=== PATIENT | male | born 1955 | race Hispanic/Latino ===

== ENCOUNTER 2017-02-16 13:23 | Inpatient (IN) | payer BC, OTHER ==
[2017-02-16 13:43] VITALS: BMI 25.7
--- NOTE | 2017-02-16 13:58 | CT ---
PROCEDURE: CT HEAD WITHOUT CONTRAST. HISTORY: s/p fall - r/o ICH and fx COMPARISON: None available. TECHNIQUE: Axial computed tomography images were obtained through the head/brain without intravenous contrast. Radiation dose: Total exam DLP = 823 mGy-cm. This CT exam was performed using one or more of the following dose reduction techniques: Automated exposure control, adjustment of the mA and/or kV according to patient size, and/or use of iterative reconstruction technique. FINDINGS: HEMORRHAGE: No intracranial hemorrhage. BRAIN: No mass effect or edema. No chronic microvascular ischemic changes. Mild atrophy VENTRICLES: Unremarkable. No hydrocephalus. CALVARIUM: There is soft tissue swelling and hemorrhage in the right parietal scalp. There is no associated fracture PARANASAL SINUSES: Unremarkable as visualized. No significant inflammatory changes. MASTOID AIR CELLS: Unremarkable as visualized. No inflammatory changes. OTHER FINDINGS: None. IMPRESSION: Normal CT of the Head.
[2017-02-16 13:59] LABS: ADD MANUAL DIFF? NO
[2017-02-16 14:03] LABS: BASO # 0.01 K/mm3 (0.0-2.0); BASO % 0.2 % (0.0-3.0); EOS % 0.2 % (1.5-5.0); GRAN # 4.95 (1.4-6.5); GRAN % 75.5 % (50.0-68.0); HEMATOCRIT 41.5 % (42.0-52.0); LYMPH # 1.2 (1.2-3.4); LYMPH % 18.6 % (22.0-35.0); MEAN CELL VOLUME 91.2 fL (80.0-105.0); MEAN CORPUSCULAR HEMOGLOBIN 31.6 pg (25.0-35.0); MEAN CORPUSCULAR HGB CONC 34.7 g/dl (31.0-37.0); MEAN PLATELET VOLUME 10.9 fl (7.0-11.0); MONO # 0.4 (0.1-0.6); MONO % 5.5 % (1.0-6.0); PLATELET COUNT 164 10^3/uL (120.0-450.0); RED CELL DISTRIBUTION WIDTH 12.6 % (11.5-14.5); WHITE BLOOD COUNT 6.6 10^3/ul (4.5-11.0)
--- NOTE | 2017-02-16 14:08 | RAD ---
HISTORY: syncope COMPARISON: No prior. FINDINGS: LUNGS: No active pulmonary disease. PLEURA: No significant pleural effusion identified, no pneumothorax apparent. CARDIOVASCULAR: Normal. OSSEOUS STRUCTURES: No significant abnormalities. VISUALIZED UPPER ABDOMEN: Normal. OTHER FINDINGS: None. IMPRESSION: No active disease.
[2017-02-16 14:15] LABS: ALB/GLOB RATIO 1.2 (1.1-1.8); ALKALINE PHOSPHATASE 67 U/L (38-133); ALT/SGPT 48 U/L (7-56); AST/SGOT 35 U/L (15-59); BILIRUBIN,TOTAL 0.8 mg/dL (0.2-1.3); BLOOD UREA NITROGEN 20 mg/dL (7-21); CALCIUM 9.4 mg/dL (8.4-10.5); CARBON DIOXIDE 25 mmol/L (21-33); CHLORIDE 98 mmol/L (98-107); GFR AFRICAN-AMERICAN > 60; GLUCOSE,RANDOM 150 mg/dL (70-110); MAGNESIUM 1.9 mg/dL (1.7-2.2); POTASSIUM 3.8 mmol/L (3.6-5.0); SODIUM 136 mmol/L (132-148); TOTAL PROTEIN 7.6 g/dL (5.8-8.3)
[2017-02-16 14:35] LABS: TROPONIN I < 0.01 ng/mL
--- NOTE | 2017-02-16 14:48 | ED PDOC ---
Arrival/HPI - General Chief Complaint: Altered Mental Status Time Seen by Provider: 02/16/17 13:35 Historian: Patient, EMS - History of Present Illness Narrative History of Present Illness (Text): 02/16/17 14:58 A 61 year old male presents to emergency department by EMS because of syncopal episode. Patient was walking to work and became dizzy. The next thing he remembered was being in the emergency department. Patient denies shortness of breath, chest pain, recent fevers, cough or any other complaints at this time. Patient reports eating today and no recent illness. Patient notes this has never happened in the past. Time/Duration: Prior to Arrival Symptom Onset: Sudden Symptom Course: Improving Activities at Onset: Rest Modifying Factors (Text): none Context: Walking Associated Symptoms (Text): none Past Medical History - Provider Review Nursing Documentation Reviewed: Yes - Cardiac Hx Cardiac Disorders: Yes Hx Hypertension: Yes - Pulmonary Hx Respiratory Disorders: No - Neurological Hx Neurological Disorder: No - HEENT Hx HEENT Disorder: No - Renal Hx Renal Disorder: No - Endocrine/Metabolic Hx Endocrine Disorders: No - Hematological/Oncological Hx Blood Disorders: No - Integumentary Hx Dermatological Disorder: No - Musculoskeletal/Rheumatological Hx Musculoskeletal Disorders: No - Gastrointestinal Hx Gastrointestinal Disorders: No - Genitourinary/Gynecological Hx Genitourinary Disorders: No - Psychiatric Hx Psychophysiologic Disorder: No Hx Substance Use: No Family/Social History - Physician Review Nursing Documentation Reviewed: Yes Family/Social History: No Known Family HX Smoking Status: Never Smoked Hx Alcohol Use: No Hx Substance Use: No Allergies/Home Meds Allergies/Adverse Reactions: Allergies No Known Allergies Allergy (Verified 02/16/17 13:27) Home Medications: Home Meds Medication Instructions Recorded Confirmed RX: Unobtainable 02/16/17 02/16/17 Review of Systems - Physician Review All systems were reviewed & negative as marked: Yes - Review of Systems Constitutional: absent: Fevers Respiratory: absent: SOB, Cough Cardiovascular: absent: Chest Pain Neurological: Dizziness Physical Exam Vital Signs Reviewed: Yes Vital Signs Temp Pulse Resp BP Pulse Ox 02/16/17 16:27 98.2 F 85 18 127/71 98 - Systems Exam Head: Present: Abrasion (and hematoma to R parietal area). No: Other (no active bleeding) Pupils: Present: PERRL Extroacular Muscles: Present: EOMI Conjunctiva: Present: Normal Mouth: Present: Moist Mucous Membranes Neck: Present: Normal Range of Motion Respiratory/Chest: Present: Clear to Auscultation, Good Air Exchange. No: Respiratory Distress, Accessory Muscle Use Cardiovascular: Present: Regular Rate and Rhythm, Normal S1, S2. No: Murmurs Abdomen: Present: Normal Bowel Sounds. No: Tenderness, Distention, Peritoneal Signs Upper Extremity: Present: Normal Inspection. No: Cyanosis, Edema Lower Extremity: Present: Normal Inspection. No: Edema Neurological: Present: GCS=15, CN II-XII Intact, Speech Normal Skin: Present: Warm, Dry, Normal Color. No: Rashes Psychiatric: Present: Alert, Oriented x 3, Normal Insight, Normal Concentration Medical Decision Making ED Course and Treatment: 02/16/17 14:45 Impression: A 61 year old male presents after syncopal episode. Differential Diagnosis included but are not limited to: syncope Plan: -- EKG -- CT head -- chest xray -- labs -- Urinalysis -- Reassess and disposition Progress Notes: EKG: Ordered, reviewed, and independently interpreted the EKG. Rate : 89 BPM Rhythm : NSR Interpretation : Normal intervals, normal axis Comparison : No previous EKG for comparison. CT head: Creator : Antonio Davis MD IMPRESSION: Normal CT of the Head. chest xray: Creator : Za Amos IMPRESSION: No active disease. - Lab Interpretations Lab Results: 02/16/17 13:50 02/16/17 13:50 Lab Results 02/16/17 13:50: Sodium 136, Potassium 3.8, Chloride 98, Carbon Dioxide 25, Anion Gap 17, BUN 20, Creatinine 0.8, Est GFR ( Amer) > 60, Est GFR (Non- Af Amer) > 60, Random Glucose 150 H, Calcium 9.4, Magnesium 1.9, Total Bilirubin 0.8, AST 35, ALT 48, Alkaline Phosphatase 67, Lactate Dehydrogenase 421, Total Creatine Kinase 145, Troponin I < 0.01, Total Protein 7.6, Albumin 4.2, Globulin 3.4, Albumin/Globulin Ratio 1.2 02/16/17 13:50: WBC 6.6, RBC 4.55, Hgb 14.4, Hct 41.5 L, MCV 91.2, MCH 31.6, MCHC 34.7, RDW 12.6, Plt Count 164, MPV 10.9, Gran % 75.5 H, Lymph % (Auto) 18.6 L, [place] % (Auto) 5.5, Eos % (Auto) 0.2 L, Baso % (Auto) 0.2, Gran # 4.95, Lymph # 1.2, [place] # 0.4, Eos # 0.0, Baso # 0.01 I have reviewed the lab results: Yes - RAD Interpretation Radiology Orders: 02/16/17 13:45 HEAD W/O CONTRAST [CT] Stat CHEST PORTABLE [RAD] Stat - EKG Interpretation Interpreted by ED Physician: Yes Type: 12 lead EKG - Scribe Statement The provider has reviewed the documentation as recorded by the Scribmeghan Remy All medical record entries made by the Evelynibmeghan were at my direction and personally dictated by me. I have reviewed the chart and agree that the record accurately reflects my personal performance of the history, physical exam, medical decision making, and the department course for this patient. I have also personally directed, reviewed, and agree with the discharge instructions and disposition. Disposition/Present on Arrival - Present on Arrival Any Indicators Present on Arrival: No History of DVT/PE: No History of Uncontrolled Diabetes: No Urinary Catheter: No History of Decub. Ulcer: No History Surgical Site Infection Following: None - Disposition Have Diagnosis and Disposition been Completed?: Yes Diagnosis: Syncope Disposition: HOSPITALIZED Disposition Time: 15:00 Patient Plan: Admission, Telemetry Condition: STABLE
--- NOTE | 2017-02-16 15:10 | CARD ---
APPROVED REPORT EKG Measurement Heart [id number] <Conclusion> Normal sinus rhythm Normal ECG
[2017-02-16 15:37] LABS: URINE BILIRUBIN NEGATIVE (NEGATIVE); URINE BLOOD NEGATIVE (NEGATIVE); URINE GLUCOSE (UA) NEGATIVE (NEGATIVE); URINE KETONE NEGATIVE (NEGATIVE); URINE LEUKOCYTE ESTERASE NEGATIVE Leu/uL (NEGATIVE); URINE PROTEIN 30 mg/dL (<30 mg/dL); URINE UROBILINOGEN 0.2 E.U./dL (<1 E.U./dL)
[2017-02-16 15:39] LABS: URINE APPEARANCE CLEAR (CLEAR); URINE COLOR YELLOW (YELLOW)
[2017-02-16 15:45] LABS: URINE RBC NEGATIVE /hpf (0-2); URINE WBC NEGATIVE /hpf (0-6)
--- NOTE | 2017-02-16 19:28 | CON ---
DATE: 02/16/2017 HISTORY OF PRESENT ILLNESS: This is a 61-year-old male with past medical history of coronary artery disease status post stent several years ago. The patient was recently put on Eliquis because of atri al fibrillation and came to hospital. The patient was walking to work, became dizzy and fell and hit his head and sustained a hematoma on the back of the right side of the head with raccoon eyes. I wa s called to evaluate the patient. The and daughter at bedside. REVIEW OF SYSTEMS: A 10-point review of system was negative, except slight hematoma in the parietal area and raccoon eyes. PHYSICAL EXAMINATION: HEENT: Normocephalic, head trauma with hematoma on the parietal area and raccoon eyes. Pupils react alex. Conjunctivae are normal. NEUROLOGIC: Alert, awake, oriented x 3. No aphasia. Cranial nerves II-XII were tested. Pupils osvaldo ctive. EOM intact. Visual canas full. No facial asymmetry. Tongue midline. Motor: Moves all of the extremities equally and deep tendon reflexes 1+. Both plantars are downgoing. Left foot drop w as noticed. Deep tendon reflexes 1+ . Plantars are downgoing. Sensory appears intact. Cerebe llar and gait deferred. IMPRESSION AND PLAN: Head trauma, syncope with a passing out spell and less likely seizures. We charlotte l do the MRI of the head and MRA of the brain and repeat the CAT scan tomorrow morning and EEG. I al so spoke to the nurse to call the chief operations officer regarding Eliquis whether to stop or continue. Martin Mata MD cc: [id number] TT: 02/16/2017 19:27:29 Confirmation # [id number] Dictation # [id number] mn
[2017-02-17 04:35] LABS: INR 1.06 (0.93-1.08); PARTIAL THROMBOPLASTIN TIME 27.7 Seconds (23.7-30.8)
--- NOTE | 2017-02-17 05:43 | CP.PCM.CON ---
<Adelso Dugan - Last Filed: 02/17/17 05:39> History of Present Illness - History of Present Illness History of Present Illness: ICU Consult Note for Dr. Driver 61 y/o M with PMH of CAD with cardiac stent placement and paroxysmal a-fib on eliquis presents to the hospital after a syncopal episode. Pt states he was walking to work and began feeling dizzy. The next thing he remembers in walking up in the hospital. Pt was found to have a right-sided skull hematoma. Pt was evaluated by Neurology and the only deficit noted at this time was a left foot drop. Tonight, pt was getting up to use the restroom when he noticed progressive left leg weakness. At this time, a repeat CT of the head was done which showed PMH: CAD, A-fib Surgical Hx: Cardiac stent placement Social Hx: Former smoker. Social alcohol use. Denies illicit drug use. Allergies: NKDA Medication: Eliquis Review of Systems - Constitutional Constitutional: absent: Chills, Fever - EENT Eyes: absent: Blurred Vision, Change in Vision Nose/Mouth/Throat: absent: Nasal Congestion, Nasal Discharge - Cardiovascular Cardiovascular: Irregular Heart Rhythm. absent: Chest Pain - Respiratory Respiratory: absent: Cough, Dyspnea - Gastrointestinal Gastrointestinal: absent: Diarrhea, Vomiting - Genitourinary Genitourinary: absent: Dysuria - Integumentary Integumentary: absent: New Lesions, Sores - Neurological Neurological: Weakness. absent: Numbness, Tingling - Hematologic/Lymphatic Hematologic: absent: Easy Bleeding, Easy Bruising Past Patient History - Past Social History Smoking Status: Never Smoked - CARDIAC Hx Cardiac Disorders: Yes Hx Hypertension: Yes - PULMONARY Hx Respiratory Disorders: No - NEUROLOGICAL Hx Neurological Disorder: No - HEENT Hx HEENT Problems: No - RENAL Hx Chronic Kidney Disease: No - ENDOCRINE/METABOLIC Hx Endocrine Disorders: No - HEMATOLOGICAL/ONCOLOGICAL Hx Blood Disorders: No - INTEGUMENTARY Hx Dermatological Problems: No - MUSCULOSKELETAL/RHEUMATOLOGICAL Hx Falls: No - GASTROINTESTINAL Hx Gastrointestinal Disorders: No - GENITOURINARY/GYNECOLOGICAL Hx Genitourinary Disorders: No - PSYCHIATRIC Hx Substance Use: No - SURGICAL HISTORY Hx Cardiac Catheterization: Yes Hx Coronary Stent: Yes (3 stents) Meds Allergies/Adverse Reactions: Allergies Allergy/AdvReac Type Severity Reaction Status Date / Time No Known Allergies Allergy Verified 02/16/17 13:27 Physical Exam - Constitutional Appears: Non-toxic, No Acute Distress - Head Exam Head Exam: NORMOCEPHALIC Additional comments: Bandaged right sided skull hematoma. Dressing clean, dry, and intact. Bruising noted around right eye. - Eye Exam Eye Exam: EOMI, Normal appearance, PERRL - ENT Exam ENT Exam: Mucous Membranes Moist, Normal Exam - Neck Exam Neck exam: Positive for: Normal Inspection. Negative for: Lymphadenopathy - Respiratory Exam Respiratory Exam: Clear to Auscultation Bilateral, NORMAL BREATHING PATTERN. absent: Rales, Rhonchi - Cardiovascular Exam Cardiovascular Exam: RRR, +S1, +S2 - GI/Abdominal Exam GI & Abdominal Exam: Normal Bowel Sounds, Soft. absent: Tenderness - Extremities Exam Extremities exam: Positive for: normal inspection. Negative for: calf tenderness, pedal edema - Neurological Exam Neurological exam: Alert, Oriented x3 Additional comments: Motor and sensation intact in upper and lower extremities b/l. Left leg muscle strength 3/5 throughout Right leg muscle strength 5/5 throughout - Psychiatric Exam Psychiatric exam: Normal Affect, Normal Mood - Skin Skin Exam: Intact, Normal Color, Warm Results - Vital Signs Recent Vital Signs: Last Vital Signs Temp 99.1 F 02/17/17 05:00 Pulse 63 02/17/17 05:00 Resp 16 02/17/17 05:00 BP 129/63 02/17/17 05:00 Pulse Ox 93 L 02/17/17 05:00 - Labs Result Diagrams: 02/16/17 13:50 02/16/17 13:50 Labs: Laboratory Results - last 24 hr 02/16/17 02/16/17 02/17/17 15:15 21:24 04:08 PT 11.4 INR 1.06 APTT 27.7 Urine Color Yellow Urine Appearance Clear Urine pH 7.0 Ur Specific [place] 1.020 Urine Protein 30 H Urine Glucose (UA) Negative Urine Ketones Negative Urine Blood Negative Urine Nitrate Negative Urine Bilirubin Negative Urine Urobilinogen 0.2 Ur Leukocyte Esterase Negative Urine RBC Negative Urine WBC Negative Urine Opiates Screen Negative Urine Methadone Screen Negative Ur Barbiturates Screen Negative Ur Phencyclidine Scrn Negative Ur Amphetamines Screen Negative U Benzodiazepines Scrn Negative U Oth Cocaine Metabols Negative U Cannabinoids Screen Negative Assessment & Plan - Assessment and Plan (Free Text) Plan: 61 y/o M with PMH of CAD with stent placement and A-fib presents with worsening right parietal extracranial hemorrhage and progression of subcentimeter hemorrhage to 1.5 cm hemorrhage at the right vertex. Brain MRI is also demonstrates probable acute minimal hemorrhagic infarction. Pt is oriented x 3 at this time, but does appear forgetful when asked about prior medical hx, which seems to be a new development. Pt will be given 2 units of FFP. Pt will be transferred to the ICU for closer monitoring in the setting of worsening left lower extremity weakness and change in mental status. Neuro: Imaging results as above Neurochecks q2h 2 units FFP given to assist in bleed EEG ordered PT/OT given Seizure precautions Swallow eval Neurology following, Dr. Mata Cardio: Hemodynamically stable Maintain MAP >65 Monitor closely, maintain normotensive pressures Pulm: Maintain O2 saturation >90% GI: NPO Protonix Nephro: Replace electrolytes as needed Maintain euvolemia Heme/ID: 2 units FFP given Maintain normothermia PPX: SCDs Seen, reviewed, and discussed with attending Ritchie, PGY-1 <Virgilio Driver P - Last Filed: 02/18/17 19:43> Results - Vital Signs Recent Vital Signs: Last Vital Signs Temp 98 F 02/17/17 11:33 Pulse 72 02/17/17 11:33 Resp 20 02/17/17 11:33 BP 120/64 02/17/17 11:33 Pulse Ox 98 02/17/17 11:33 - Labs Result Diagrams: 02/17/17 10:00 02/17/17 10:00 Attending/Attestation - Attestation I have personally seen and examined this patient.: Yes I have fully participated in the care of the patient.: Yes I have reviewed all pertinent clinical information: Yes
--- NOTE | 2017-02-17 09:23 | HP ---
The patient is a 61-year-old male with a history of coronary artery disease status post PTCA in 2004, who had been doing quite well and suffered a syncopal episode on the way to the [employer] [facility] where he works. The patient does not remember anything of the episode. He does admit to feeli ng slightly weak and then recalls waking up in the [facility] Emergency Room. The patien t is still kind of groggy. He did vomit once in the Emergency Room. MEDICATIONS: Include Toprol-XL 50 mg, aspirin 325 mg, Lipitor 20 mg. Because of a burst of atrial f ibrillation in the recent past, supposedly is reported his Toprol had been increased to 100 mg about 2 weeks ago and he had also been started on Eliquis. SOCIAL HISTORY: The patient is . He has a history of cigarettes; however, not smoked for the past 20 years. He drinks alcohol only socially. He drinks about 3 cups of coffee a day. REVIEW OF SYSTEMS: Otherwise, negative as the patient is rather groggy and consider a poor historian . PHYSICAL EXAMINATION: HEENT: There was a large hematoma over the right parietal area. There seem to be a growing ecchymos is around the right orbit. NECK: Supple, but tender. RESPIRATORY: His breath sounds are clear anteriorly. HEART: Regular. ABDOMEN: Soft and nontender. EXTREMITIES: Free of cyanosis, clubbing or edema. VITAL SIGNS: His blood pressure is 127/71, heart rate is 85, temperature is 98.2 degrees Fahrenheit. LABORATORY STUDIES: Initial CAT scan of the head was normal. Chest x-ray shows no acute disease. E KG shows regular sinus rhythm. His white blood cell count is 6.6, hemoglobin and hematocrit 14.4 and 41.5 respectively, platelet count is 164. Serum chemistries are unremarkable with a sodium of 136, potassium 3.8, BUN 20, creatinine 0.8. Nonfasting glucose is 150. His liver enzymes, CK and troponi ns are negative. Dr. Mata, the neurologist, was called to evaluate the patient. Repeat CAT scan a nd MRI are ordered and The case was discussed with the patient's at bedside as well as the ' s friend who was giving her oral support. We will continue to follow the patient closely. Follow up on the repeat CAT scan and MRI. Antonio Murguia MD cc: [phone] TT: 02/17/2017 09:23:02 mn
--- NOTE | 2017-02-17 09:45 | US ---
PROCEDURE: Bilateral carotid artery duplex ultrasound HISTORY: Carotid stenosis syncope PHYSICIAN(S): Donn Vazquez MD. TECHNIQUE: Duplex sonography and color-flow Doppler were used to evaluate the carotid bifurcations and limited segments of the vertebral arteries bilaterally. FINDINGS: There is mild smooth heterogeneous plaque noted at the carotid bifurcations bilaterally. The peak systolic velocity in the proximal right internal carotid artery is 96 cm/sec. This corresponds to a 20 to 39% proximal right ICA stenosis. Normal systolic velocities are noted in the proximal right external carotid artery. There is antegrade flow in the right vertebral artery. The peak systolic velocity in the proximal left internal carotid artery is 90 cm/sec. This corresponds to a 20 to 39% proximal left ICA stenosis. Normal systolic velocities are noted in the proximal left external carotid artery. There is antegrade flow in the left vertebral artery. IMPRESSION: 1. Bilateral 20-39% proximal ICA stenoses. 2. Antegrade flow in both vertebral arteries.
--- NOTE | 2017-02-17 09:58 | MRI ---
PROCEDURE: MRI BRAIN WITHOUT CONTRAST HISTORY: syncope/hematoma COMPARISON: CT of the head 02/16/2017 and 02/17/2017 TECHNIQUE: Multiplanar, multisequence MR images of the brain were obtained without intravenous contrast enhancement. FINDINGS: HEMORRHAGE: A focus of hemorrhage is seen in the right posterior frontal lobe near the midline of the precentral gyrus. This appears larger on MRI than on CT. This may be due to increased sensitivity to hemorrhage. This lesion measures 8 x 13 mm on image 23. Smaller foci of hemorrhage are seen in the right parietal white matter images 18 through twenty-one. There is also diffusion abnormality associated with these areas of hemorrhage. This suggests a hemorrhagic infarct. There is a scalp hematoma over the right parietal region consistent with the patient's recent fall. Although the intracranial hemorrhages could be associated with trauma from a fall it is less likely. Intraparenchymal hemorrhage from trauma is usually seen in more high velocity traumatic head injury. DWI: As above BRAIN PARENCHYMA: No mass effect or edema. In addition to the above findings there are mild microvascular changes in the periventricular white matter. There is mild atrophy. VENTRICLES: Unremarkable. No hydrocephalus. CRANIUM: Unremarkable. ORBITS: Grossly unremarkable. PARANASAL SINUSES/MASTOIDS: Clear VASCULAR SYSTEM: Skull base flow voids intact. OTHER FINDINGS: The report concurs with the preliminary [facility] report IMPRESSION: Areas of hemorrhage and diffusion abnormality in the right posterior frontal and parietal lobes most consistent with acute hemorrhagic infarcts in a watershed distribution. See comments
--- NOTE | 2017-02-17 10:01 | MRI ---
PROCEDURE: Magnetic Resonance Angiography Brain HISTORY: SYNCOPE COMPARISON: MRI of the brain and head CT from the same day TECHNIQUE: 3D time of flight MR angiography of the intracranial arteries was performed. Rotating maximum intensity projection images were generated. FINDINGS: INTERNAL CEREBRAL ARTERIES: Unremarkable. The skull base, petrous, cavernous and supraclinoid segments are bilaterally widely patient. ANTERIOR CEREBRAL ARTERIES: Unremarkable. A1 and A2 segments are widely patent. Smaller distal branches unremarkable, as visualized. MIDDLE CEREBRAL ARTERIES: Unremarkable. M1 and M2 segments are widely patent. Perisylvian branches grossly symmetric. POSTERIOR CIRCULATION: Basilar Artery: Unremarkable. Distal Vertebral Arteries: Unremarkable. Posterior Cerebral Arteries: Unremarkable. Posterior Inferior Cerebellar Arteries: Unremarkable. ANEURYSM/ VASCULAR MALFORMATIONS: None. OTHER FINDINGS: The report concurs with the preliminary [facility] report IMPRESSION: Unremarkable MR angiography of the brain.
[2017-02-17 10:16] LABS: ADD MANUAL DIFF? NO
[2017-02-17 10:19] LABS: BASO # 0.01 K/mm3 (0.0-2.0); BASO % 0.1 % (0.0-3.0); EOS % 0.1 % (1.5-5.0); GRAN # 5.24 (1.4-6.5); GRAN % 74.4 % (50.0-68.0); HEMATOCRIT 43.2 % (42.0-52.0); LYMPH # 1.1 (1.2-3.4); LYMPH % 16.1 % (22.0-35.0); MEAN CELL VOLUME 91.1 fL (80.0-105.0); MEAN CORPUSCULAR HEMOGLOBIN 31.4 pg (25.0-35.0); MEAN CORPUSCULAR HGB CONC 34.5 g/dl (31.0-37.0); MEAN PLATELET VOLUME 10.2 fl (7.0-11.0); MONO # 0.7 (0.1-0.6); MONO % 9.3 % (1.0-6.0); PLATELET COUNT 145 10^3/uL (120.0-450.0); RED CELL DISTRIBUTION WIDTH 12.4 % (11.5-14.5); WHITE BLOOD COUNT 7.1 10^3/ul (4.5-11.0)
--- NOTE | 2017-02-17 10:21 | CT ---
PROCEDURE: CT HEAD WITHOUT CONTRAST. 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 Radiation dose: Total exam DLP = 779 mGy-cm. This CT exam was performed using one or more of the following dose reduction techniques: Automated exposure control, adjustment of the mA and/or kV according to patient size, and/or use of iterative reconstruction technique. FINDINGS: HEMORRHAGE: The small focus of hemorrhage in the right posterior frontal lobe seen previously has increased in size and now measures 15 mm in diameter. New areas of hemorrhage are seen in the right parietal white matter. These findings were also demonstrated on yesterday's MRI. The MRI a showed areas of diffusion restriction making the findings most consistent with hemorrhagic infarcts. Posttraumatic hemorrhage is also possible. There is a large right parietal scalp hematoma from recent fall. Continued followup is recommended BRAIN: No mass effect or edema. No atrophy or chronic microvascular ischemic changes. VENTRICLES: Unremarkable. No hydrocephalus. CALVARIUM: Unremarkable. PARANASAL SINUSES: Unremarkable as visualized. No significant inflammatory changes. MASTOID AIR CELLS: Unremarkable as visualized. No inflammatory changes. OTHER FINDINGS: None. IMPRESSION: Increased size of hemorrhage in the right posterior frontal lobe and new areas of hemorrhage in the right parietal white matter. The findings may represent hemorrhagic infarcts or posttraumatic hemorrhage
[2017-02-17 10:27] LABS: ALB/GLOB RATIO 1.2 (1.1-1.8); ALKALINE PHOSPHATASE 67 U/L (38-133); ALT/SGPT 51 U/L (7-56); AST/SGOT 29 U/L (15-59); BILIRUBIN,TOTAL 1.4 mg/dL (0.2-1.3); BLOOD UREA NITROGEN 12 mg/dL (7-21); CALCIUM 9.4 mg/dL (8.4-10.5); CARBON DIOXIDE 30 mmol/L (21-33); CHLORIDE 97 mmol/L (98-107); GFR AFRICAN-AMERICAN > 60; GLUCOSE,RANDOM 112 mg/dL (70-110); POTASSIUM 3.7 mmol/L (3.6-5.0); SODIUM 137 mmol/L (132-148); TOTAL PROTEIN 7.9 g/dL (5.8-8.3)
[2017-02-17 10:40] VITALS: PULSE 72
--- NOTE | 2017-02-17 10:49 | CON ---
DATE: 02/17/2017 INDICATIONS: Syncope, head trauma, intracerebral bleed, on Eliquis. HISTORY OF PRESENT ILLNESS: This is a 61-year-old man known to our practice with a history of remote coronary artery disease and coronary intervention, paroxysmal atrial fibrillation, on Eliquis, who became dizzy and fell on the street while walking to the library yesterday. He suffered head trauma, was brought to the Emergency Room where he was found to have a parietal hematoma. A CAT scan initially was negative. During the night, he developed left leg symptoms. Repeat CAT scan apparently showed a small intercerebral bleed, although the formal report is not in the system. Today, he is resting in the ICU. He is awake and alert. He has weakness of his left leg and foot. He has been given fresh frozen plasma. Eliquis has been discontinued. He is in sinus rhythm. He recalls feeling dizzy, but does not recall any other events prior to arriving in the hospital. There was no chest pain, shortness of breath, orthopnea, PND, edema, claudication, prior syncope, fever, chills, cough, sputum production, hemoptysis, abdominal pain, nausea, diarrhea, constipation or melena. There was an episode of vomiting initially. PAST MEDICAL HISTORY: Coronary artery disease, remote coronary stent and paroxysmal atrial fibrillation. There is no history of rheumatic fever, myocardial infarction, congestive heart failure, stroke, TIA, diabetes or gout. MEDICATIONS: At the time of his admission, Eliquis. ALLERGIES: There are no medication allergies. SOCIAL HISTORY: He is a former smoker. He does not drink alcohol significantly. He lives at home. He is ambulatory. FAMILY HISTORY: Noncontributory. REVIEW OF SYSTEMS: A 10-point review of systems is otherwise unremarkable except as noted above. PHYSICAL EXAMINATION: GENERAL: He is a well-developed male sitting on his bed in the ICU in no acute distress. VITAL SIGNS: Unremarkable. He is in sinus rhythm at 75 beats per minute. He is afebrile. Blood pressure 154/85, respirations 18-26, O2 sat 95%-97% on room air. HEENT: Reveals no neck vein distention, thyromegaly, or carotid bruits. Mucous membranes are moist. Conjunctivae are pink. His head is bandaged. LUNGS: Fernandez are clear. HEART: Revealed normal first and second heart sounds. I did not appreciate murmur, gallop, rub or click. PMI not palpable. ABDOMEN: Soft. Bowel sounds present. No mass, organomegaly, tenderness, rebound, guarding, CVA tenderness or palpable abdominal aortic aneurysm. LABORATORY AND IMAGING: CBC is unremarkable. PT, INR, PTT are normal. Electrolytes, BUN, creatinine, blood sugar, magnesium, LFTs, CK and troponin all unremarkable. Urinalysis is unremarkable. Toxic screen is normal. His EKG demonstrates regular sinus rhythm and is within normal limits. Portable chest x-ray reveals no active disease. The initial CT scan of the head yesterday reveals a normal CT scan of the head. Followup CT scan of the head apparently shows a small bleed, but the report is not in the system. IMPRESSION AND PLAN: The patient is a 61-year-old man who suffered a syncopal episode with head trauma while on Eliquis. He has evidence of a small intracerebral bleed as well as a parietal area hematoma. He has developed weakness in his left leg and foot. Eliquis has been held. He has been given fresh frozen plasma. I have discussed the case with Dr. Lang. I have recommended a stat, urgent neurosurgical evaluation and transfer to a medical center with a neurosurgical unit. Consideration should be given to reversing Eliquis with prothrombin complex concentrate, which (I am told) is not available at this hospital, according to Dr. Lang. He is in sinus rhythm so far and his cardiac status is stable. He should be transferred to a neurosurgical unit for monitoring and possible reversal of Eliquis with PCC if it can be obtained. I have also suggested a hematology evaluation, which he will arrange. I have spoken the hospital's MARKETING AND COMMUNICATIONS OFFICER about transfer as well. Misael Hanson MD cc: [id number] TT: 02/17/2017 10:47:54 Confirmation # [id number] Dictation # [id number] rupa CALABRESE
[2017-02-17 11:42] VITALS: BP 120/64; RESP 20; TEMP 98; O2SAT 98
--- NOTE | 2017-02-17 13:52 | PN ---
DATE: 02/17/2017 CHIEF COMPLAINT: Status post head trauma, status post cerebral bleed on Eliquis. SUBJECTIVE: The patient seen and examined at bedside, doing well, has a left foot drop and mild left -sided weakness and mild left facial droop. Apparently, the patient became dizzy and fell while he w as walking to the library yesterday where he had suffered head trauma, brought into Emergency Departm ent, was found to have a parietal hematoma. Initial CAT scan was negative. During the night, he dev eloped left leg symptoms where his left foot drop and all of his left leg was heavy as well as his le ft arm and had mild left facial droop. He underwent an MRI, which showed areas of hemorrhagic and di ffusion restriction in the right posterior frontal and parietal lobes, consistent with acute hemorrha ge or infarcts in the watershed distribution. He further had a repeat CAT scan this morning, which s howed increased size of the hemorrhage of the right posterior frontal lobe and areas of hemorrhage of the right parietal white matter, leading to his posttraumatic hemorrhage. He was given fresh frozen plasma and his Eliquis has been discontinued. He will be transferred to a tertiary care hospital wi th more neurological monitoring at an ICU facility given that he was on Eliquis and will need to be m ore monitored in terms of more fresh frozen plasma and possibly a PCC and therefore he has been accep soo to [facility] for neuro monitoring unit. He is moving the left side, but has a 4+/5 in the lef t leg and has dorsiflexion weakness of the left foot. He is otherwise coherent. No aphasia is noted . PAST MEDICAL HISTORY: Coronary artery disease paroxysmal atrial fibrillation. MEDICATIONS: Reviewed via nurse's reconciliation sheet. ALLERGIES: No known drug allergies. SOCIAL HISTORY: Former smoker, does not drink alcohol significantly, lives at home. He is ambulator y. FAMILY HISTORY: Noncontributory. REVIEW OF SYSTEMS: A 14-point is negative except for in the HPI. PHYSICAL EXAMINATION: VITAL SIGNS: Temperature of 98, pulse rate of 72, blood pressure 120/64, respiratory rate 20, oxygen saturation 98% via room air. GENERAL: The patient is sitting up in bed, no acute distress. HEENT: Atraumatic, normocephalic. PERRLA. Extraocular muscles intact. NECK: Supple, no JVD, no adenopathy noted. LUNGS: Clear to auscultation. No adventitious sounds. HEART: S1, S2, normal rate and rhythm. No murmurs, rubs, or gallops. ABDOMEN: Soft, nontender, nondistended. Bowel sounds are present. EXTREMITIES: No clubbing, no cyanosis. Peripheral pulses 2+ felt bilaterally. NEUROLOGIC: The patient is alert, oriented to person, place, month and year. Speech is fluent, with out any errors. Cranial nerves II-XII are intact, except for mild left facial droop. MOTOR: Has left foot drop as well as left leg 4+/5 weakness and left upper arm 5-/5 weakness. Toes are upgoing bilaterally. SENSORY: Light touch, pinprick, proprioception, vibration intact. DEEP TENDON REFLEXES: 2+ throughout. COORDINATION: [id number] intact. GAIT: Deferred for now. LABORATORIES: Repeat CAT scan showed increased size of hemorrhage in the right posterior frontal lob e and areas of hemorrhage in the right parietal white matter. Findings represent hemorrhagic infarct s or posttraumatic hemorrhage. ASSESSMENT AND PLAN: This is a 61-year-old man with past medical history of paroxysmal atrial fibril lation on Eliquis, history of coronary artery disease status post stent, hypertension, who presented after a syncopal episode, resulted in head trauma while on Eliquis, resulted in intracerebral bleed i n the left frontal and parietal areas, which was increasing in size and also developed left-sided wea kness due to increasing hemorrhage in the left frontal and parietal areas with an underlying left lea t drop, which was traumatic in nature. His Eliquis has been held. He has been given fresh frozen pl asma and being transferred to [facility] for neuro monitoring unit, which will be better for him in terms of tertiary care. At this time, he likely will need some . Therefore, [facility] and he is stable for his transfer to [facility]. Once again, thank you for this followup. Phil Mata MD cc: [id number] TT: 02/17/2017 13:52:13 Confirmation # [id number] Dictation # [id number]
--- NOTE | 2017-02-17 13:55 | CP.CCUPN ---
<Manuel Morin - Last Filed: 02/17/17 13:49> CCU Subjective - Physician Review Events Since Last Encounter (Free Text): 02/17/17 13:50 61 year old male with a PMH of CAD s/p stents in 2004 and paroxysmal A-fib on Eliquis who presented to the hospital after a syncopal episode and found to have a subcutaneous extracranial hematoma. Patient overnight had weakness of the left leg while walking to the bathroom and was seen by the house physician and transferred to the ICU. Repeat head CT was done and showed hemorrhage on right vertex. CCU Objective - Vital Signs / Intake & Output Vital Signs (Last 4 hours): Vital Signs Temp Pulse Resp BP Pulse Ox 02/17/17 11:33 98 F 72 20 120/64 98 02/17/17 10:00 72 Intake and Output (Last 8hrs): Intake & Output 02/16/17 02/17/17 02/17/17 22:59 06:59 14:59 Intake Total 100 Output Total 350 Balance -250 Weight 90.718 kg 90.945 kg Intake: Oral 100 Output: Urine 350 Urethral (Hayes) 350 Other: Voiding Method Urinal Urinal - Physical Exam Head: Positive for: Tenderness (right parietal), Contusion, Swelling, Ecchymosis , Abrasion (and hematoma to R parietal area), Other (right periorbital bruising) Pupils: Positive for: PERRL Extroacular Muscles: Positive for: EOMI Conjunctiva: Positive for: Normal Mouth: Positive for: Moist Mucous Membranes, Normal Tounge Pharnyx: Positive for: Normal. Negative for: ERYTHEMA, EXUDATE Nose (External): Positive for: Atraumatic Neck: Negative for: JVD, Lymphadenopathy Respiratory/Chest: Positive for: Clear to Auscultation, Good Air Exchange. Negative for: Respiratory Distress, Accessory Muscle Use, Wheezes, Rales, Rhonchi Cardiovascular: Positive for: Regular Rate and Rhythm, Normal S1, S2. Negative for: Murmurs, Rub, Gallop Abdomen: Positive for: Normal Bowel Sounds. Negative for: Tenderness, Distention, Peritoneal Signs Upper Extremity: Positive for: Normal Inspection. Negative for: Cyanosis, Edema Lower Extremity: Positive for: Normal Inspection, NORMAL PULSES, Capillary Refill < 2 s. Negative for: Edema, Tenderness, Swelling, Erythema, Temperature Abnormalties Neurological: Positive for: GCS=15, CN II-XII Intact, Speech Normal, Other ( left HF 3/5, KF 4-/5, DF 0/5, PF 0/5, EHL 0/5, downgoing plants BL, no other focal deficits) Skin: Positive for: Warm, Dry. Negative for: Rashes Psychiatric: Positive for: Alert, Oriented x 3, Normal Insight, Normal Concentration - Patient Studies Lab Studies: Lab Studies 02/17/17 02/17/17 02/17/17 Range/Units 10:00 10:00 08:00 WBC 7.1 (4.5-11.0) 10^3/ul RBC 4.74 (3.5-6.1) 10^6/uL Hgb 14.9 (14.0-18.0) gm/dL Hct 43.2 (42.0-52.0) % MCV 91.1 (80.0-105.0) fL MCH 31.4 (25.0-35.0) pg MCHC 34.5 (31.0-37.0) g/dl RDW 12.4 (11.5-14.5) % Plt Count 145 (120.0-450.0) 10^3/uL MPV 10.2 (7.0-11.0) fl Gran % 74.4 H (50.0-68.0) % Lymph % (Auto) 16.1 L (22.0-35.0) % Erie % (Auto) 9.3 H (1.0-6.0) % Eos % (Auto) 0.1 L (1.5-5.0) % Baso % (Auto) 0.1 (0.0-3.0) % Gran # 5.24 (1.4-6.5) Lymph # 1.1 L (1.2-3.4) Erie # 0.7 H (0.1-0.6) Eos # 0.0 (0.0-0.7) Baso # 0.01 (0.0-2.0) K/mm3 PT (9.9-11.8) Seconds INR (0.93-1.08) APTT (23.7-30.8) Seconds Sodium 137 (132-148) mmol/L Potassium 3.7 (3.6-5.0) mmol/L Chloride 97 L (98-107) mmol/L Carbon Dioxide 30 (21-33) mmol/L Anion Gap 14 (10-20) BUN 12 (7-21) mg/dL Creatinine 0.7 (0.5-1.4) mg/dL Est GFR ( Amer) > 60 Est GFR (Non-Af Amer) > 60 Random Glucose 112 H (70-110) mg/dL Calcium 9.4 (8.4-10.5) mg/dL Total Bilirubin 1.4 H (0.2-1.3) mg/dL AST 29 (15-59) U/L ALT 51 (7-56) U/L Alkaline Phosphatase 67 (38-133) U/L Total Protein 7.9 (5.8-8.3) g/dL Albumin 4.3 (3.0-4.8) g/dL Globulin 3.7 gm/dL Albumin/Globulin Ratio 1.2 (1.1-1.8) Urine Color (YELLOW) Urine Appearance (CLEAR) Urine pH (4.7-8.0) Ur Specific Pierre (1.005-1.035) Urine Protein (<30 mg/dL) mg/dL Urine Glucose (UA) (NEGATIVE) mg/dL Urine Ketones (NEGATIVE) mg/dL Urine Blood (NEGATIVE) Urine Nitrate (NEGATIVE) Urine Bilirubin (NEGATIVE) Urine Urobilinogen (<1 E.U./dL) E.U./dL Ur Leukocyte Esterase (NEGATIVE) Walker/uL Urine RBC (0-2) /hpf Urine WBC (0-6) /hpf Urine Opiates Screen (NEGATIVE) Urine Methadone Screen (NEGATIVE) Ur Barbiturates Screen (NEGATIVE) Ur Phencyclidine Scrn (NEGATIVE) Ur Amphetamines Screen (NEGATIVE) U Benzodiazepines Scrn (NEGATIVE) U Oth Cocaine Metabols (NEGATIVE) U Cannabinoids Screen (NEGATIVE) Blood Type Blood Type Confirm O POSITIVE Antibody Screen BBK History Checked 02/17/17 02/17/17 02/16/17 Range/Units 08:00 04:08 21:24 WBC (4.5-11.0) 10^3/ul RBC (3.5-6.1) 10^6/uL Hgb (14.0-18.0) gm/dL Hct (42.0-52.0) % MCV (80.0-105.0) fL MCH (25.0-35.0) pg MCHC (31.0-37.0) g/dl RDW (11.5-14.5) % Plt Count (120.0-450.0) 10^3/uL MPV (7.0-11.0) fl Gran % (50.0-68.0) % Lymph % (Auto) (22.0-35.0) % Erie % (Auto) (1.0-6.0) % Eos % (Auto) (1.5-5.0) % Baso % (Auto) (0.0-3.0) % Gran # (1.4-6.5) Lymph # (1.2-3.4) Erie # (0.1-0.6) Eos # (0.0-0.7) Baso # (0.0-2.0) K/mm3 PT 11.4 (9.9-11.8) Seconds INR 1.06 (0.93-1.08) APTT 27.7 (23.7-30.8) Seconds Sodium (132-148) mmol/L Potassium (3.6-5.0) mmol/L Chloride (98-107) mmol/L Carbon Dioxide (21-33) mmol/L Anion Gap (10-20) BUN (7-21) mg/dL Creatinine (0.5-1.4) mg/dL Est GFR ( Amer) Est GFR (Non-Af Amer) Random Glucose (70-110) mg/dL Calcium (8.4-10.5) mg/dL Total Bilirubin (0.2-1.3) mg/dL AST (15-59) U/L ALT (7-56) U/L Alkaline Phosphatase (38-133) U/L Total Protein (5.8-8.3) g/dL Albumin (3.0-4.8) g/dL Globulin gm/dL Albumin/Globulin Ratio (1.1-1.8) Urine Color (YELLOW) Urine Appearance (CLEAR) Urine pH (4.7-8.0) Ur Specific Pierre (1.005-1.035) Urine Protein (<30 mg/dL) mg/dL Urine Glucose (UA) (NEGATIVE) mg/dL Urine Ketones (NEGATIVE) mg/dL Urine Blood (NEGATIVE) Urine Nitrate (NEGATIVE) Urine Bilirubin (NEGATIVE) Urine Urobilinogen (<1 E.U./dL) E.U./dL Ur Leukocyte Esterase (NEGATIVE) Walker/uL Urine RBC (0-2) /hpf Urine WBC (0-6) /hpf Urine Opiates Screen Negative (NEGATIVE) Urine Methadone Screen Negative (NEGATIVE) Ur Barbiturates Screen Negative (NEGATIVE) Ur Phencyclidine Scrn Negative (NEGATIVE) Ur Amphetamines Screen Negative (NEGATIVE) U Benzodiazepines Scrn Negative (NEGATIVE) U Oth Cocaine Metabols Negative (NEGATIVE) U Cannabinoids Screen Negative (NEGATIVE) Blood Type O POSITIVE Blood Type Confirm Antibody Screen Negative BBK History Checked No verified bt 02/16/17 Range/Units 15:15 WBC (4.5-11.0) 10^3/ul RBC (3.5-6.1) 10^6/uL Hgb (14.0-18.0) gm/dL Hct (42.0-52.0) % MCV (80.0-105.0) fL MCH (25.0-35.0) pg MCHC (31.0-37.0) g/dl RDW (11.5-14.5) % Plt Count (120.0-450.0) 10^3/uL MPV (7.0-11.0) fl Gran % (50.0-68.0) % Lymph % (Auto) (22.0-35.0) % Erie % (Auto) (1.0-6.0) % Eos % (Auto) (1.5-5.0) % Baso % (Auto) (0.0-3.0) % Gran # (1.4-6.5) Lymph # (1.2-3.4) Erie # (0.1-0.6) Eos # (0.0-0.7) Baso # (0.0-2.0) K/mm3 PT (9.9-11.8) Seconds INR (0.93-1.08) APTT (23.7-30.8) Seconds Sodium (132-148) mmol/L Potassium (3.6-5.0) mmol/L Chloride (98-107) mmol/L Carbon Dioxide (21-33) mmol/L Anion Gap (10-20) BUN (7-21) mg/dL Creatinine (0.5-1.4) mg/dL Est GFR ( Amer) Est GFR (Non-Af Amer) Random Glucose (70-110) mg/dL Calcium (8.4-10.5) mg/dL Total Bilirubin (0.2-1.3) mg/dL AST (15-59) U/L ALT (7-56) U/L Alkaline Phosphatase (38-133) U/L Total Protein (5.8-8.3) g/dL Albumin (3.0-4.8) g/dL Globulin gm/dL Albumin/Globulin Ratio (1.1-1.8) Urine Color Yellow (YELLOW) Urine Appearance Clear (CLEAR) Urine pH 7.0 (4.7-8.0) Ur Specific Pierre 1.020 (1.005-1.035) Urine Protein 30 H (<30 mg/dL) mg/dL Urine Glucose (UA) Negative (NEGATIVE) mg/dL Urine Ketones Negative (NEGATIVE) mg/dL Urine Blood Negative (NEGATIVE) Urine Nitrate Negative (NEGATIVE) Urine Bilirubin Negative (NEGATIVE) Urine Urobilinogen 0.2 (<1 E.U./dL) E.U./dL Ur Leukocyte Esterase Negative (NEGATIVE) Walker/uL Urine RBC Negative (0-2) /hpf Urine WBC Negative (0-6) /hpf Urine Opiates Screen (NEGATIVE) Urine Methadone Screen (NEGATIVE) Ur Barbiturates Screen (NEGATIVE) Ur Phencyclidine Scrn (NEGATIVE) Ur Amphetamines Screen (NEGATIVE) U Benzodiazepines Scrn (NEGATIVE) U Oth Cocaine Metabols (NEGATIVE) U Cannabinoids Screen (NEGATIVE) Blood Type Blood Type Confirm Antibody Screen BBK History Checked Laboratory Results - last 24 hr 02/16/17 02/16/17 02/17/17 15:15 21:24 04:08 WBC RBC Hgb Hct MCV MCH MCHC RDW Plt Count MPV Gran % Lymph % (Auto) Erie % (Auto) Eos % (Auto) Baso % (Auto) Gran # Lymph # Erie # Eos # Baso # PT 11.4 INR 1.06 APTT 27.7 Sodium Potassium Chloride Carbon Dioxide Anion Gap BUN Creatinine Est GFR ( Amer) Est GFR (Non-Af Amer) Random Glucose Calcium Total Bilirubin AST ALT Alkaline Phosphatase Total Protein Albumin Globulin Albumin/Globulin Ratio Urine Color Yellow Urine Appearance Clear Urine pH 7.0 Ur Specific Pierre 1.020 Urine Protein 30 H Urine Glucose (UA) Negative Urine Ketones Negative Urine Blood Negative Urine Nitrate Negative Urine Bilirubin Negative Urine Urobilinogen 0.2 Ur Leukocyte Esterase Negative Urine RBC Negative Urine WBC Negative Urine Opiates Screen Negative Urine Methadone Screen Negative Ur Barbiturates Screen Negative Ur Phencyclidine Scrn Negative Ur Amphetamines Screen Negative U Benzodiazepines Scrn Negative U Oth Cocaine Metabols Negative U Cannabinoids Screen Negative Blood Type Blood Type Confirm Antibody Screen BBK History Checked 02/17/17 02/17/17 02/17/17 08:00 08:00 10:00 WBC 7.1 RBC 4.74 Hgb 14.9 Hct 43.2 MCV 91.1 MCH 31.4 MCHC 34.5 RDW 12.4 Plt Count 145 MPV 10.2 Gran % 74.4 H Lymph % (Auto) 16.1 L Erie % (Auto) 9.3 H Eos % (Auto) 0.1 L Baso % (Auto) 0.1 Gran # 5.24 Lymph # 1.1 L Erie # 0.7 H Eos # 0.0 Baso # 0.01 PT INR APTT Sodium Potassium Chloride Carbon Dioxide Anion Gap BUN Creatinine Est GFR ( Amer) Est GFR (Non-Af Amer) Random Glucose Calcium Total Bilirubin AST ALT Alkaline Phosphatase Total Protein Albumin Globulin Albumin/Globulin Ratio Urine Color Urine Appearance Urine pH Ur Specific Pierre Urine Protein Urine Glucose (UA) Urine Ketones Urine Blood Urine Nitrate Urine Bilirubin Urine Urobilinogen Ur Leukocyte Esterase Urine RBC Urine WBC Urine Opiates Screen Urine Methadone Screen Ur Barbiturates Screen Ur Phencyclidine Scrn Ur Amphetamines Screen U Benzodiazepines Scrn U Oth Cocaine Metabols U Cannabinoids Screen Blood Type O POSITIVE Blood Type Confirm O POSITIVE Antibody Screen Negative BBK History Checked No verified bt 02/17/17 10:00 WBC RBC Hgb Hct MCV MCH MCHC RDW Plt Count MPV Gran % Lymph % (Auto) Erie % (Auto) Eos % (Auto) Baso % (Auto) Gran # Lymph # Erie # Eos # Baso # PT INR APTT Sodium 137 Potassium 3.7 Chloride 97 L Carbon Dioxide 30 Anion Gap 14 BUN 12 Creatinine 0.7 Est GFR ( Amer) > 60 Est GFR (Non-Af Amer) > 60 Random Glucose 112 H Calcium 9.4 Total Bilirubin 1.4 H AST 29 ALT 51 Alkaline Phosphatase 67 Total Protein 7.9 Albumin 4.3 Globulin 3.7 Albumin/Globulin Ratio 1.2 Urine Color Urine Appearance Urine pH Ur Specific Pierre Urine Protein Urine Glucose (UA) Urine Ketones Urine Blood Urine Nitrate Urine Bilirubin Urine Urobilinogen Ur Leukocyte Esterase Urine RBC Urine WBC Urine Opiates Screen Urine Methadone Screen Ur Barbiturates Screen Ur Phencyclidine Scrn Ur Amphetamines Screen U Benzodiazepines Scrn U Oth Cocaine Metabols U Cannabinoids Screen Blood Type Blood Type Confirm Antibody Screen BBK History Checked Review of Systems - Constitutional Constitutional: absent: Fever, Chills - EENT Eyes: absent: Blind Spots, Change in Vision Ears: absent: Decreased Hearing, Ear Discharge Nose/Mouth/Throat: absent: Epistaxis, Nasal Congestion - Cardiovascular Cardiovascular: absent: Chest Pain, Diaphoresis - Respiratory Respiratory: absent: Cough, Dyspnea - Gastrointestinal Gastrointestinal: absent: Abdominal Pain, Nausea - Genitourinary Genitourinary: absent: Dysuria, Hematuria - Musculoskeletal Musculoskeletal: Muscle Weakness. absent: Joint Swelling - Integumentary Integumentary: absent: Pruritus, Rash - Neurological Neurological: Focal Weakness, Weakness. absent: Tremor Critical Care Progress Note - Nutrition Nutrition: Nutrition Category Date Time Status NPO Diet [DIET] Diets 02/17/17 Breakfast Ordered Assessment/Plan - Assessment and Plan (Free Text) Assessment: 61 year old male with a PMH of CAD s/p stents in 2004 and paroxysmal A-fib on Eliquis who presented to the hospital after a syncopal episode and found to have a subcutaneous extracranial hematoma. Plan: Neurological - AAOx4, GCS 15, but left sided deficits noted around 2am today, STAT head CT that was done shows worsening right vertex intracranial hematoma, MRI shows right posterior frontal lobe hemorrhage near the midline of the precentral gyrus, MRA unremarkable, carotid US shows BL 20-39% stenosis and anterograde flow. Given that patient is on Eliquis and he has an evolving hematoma, patient may need Eliquis reversal with prothrombin complex concentrate. As this facility does not carry PCC, ICU attending Dr. Lang spoke with [facility] who accepted the patient (Dr. Diez). Transport being arranged. Discussed the risks and benefits with the patient and family who verbalized understanding and agreement with transfer and plan in general. Continue neurochecks q2h. Neurology Dr. Mata following, agreed to transfer. On seizure precautions. Cardiovascular - RRR, no M/R/G, hemodynamically stable, known CAD and paroxysmal A-fib however holding toprolol, lipitor and eliquis. Pulmonary - CTAB, no W/R/R, satting well on room air, continue to monitor. Renal/ Fluids / Electrolytes - 100/250, strict IxOs, BUN and Cr within normal limits, hayes in place. GI - NPO Infectious disease - afebrile, no acute signs of infection, no leukocytosis, continue to monitor. Hematology - Hgb stable, known extracranial and intracranial hematomas as mentioned. Endocrine - no abnormalities noted. Prophylaxis - SCDs Patient was seen and examined and case was discussed at length with attending physician. - Date & Time Date: 02/17/17 Time: 10:30 <Nav Lang - Last Filed: 02/17/17 15:44> CCU Objective - Vital Signs / Intake & Output Intake and Output (Last 8hrs): Intake & Output 02/17/17 02/17/17 02/17/17 06:59 14:59 22:59 Intake Total 100 Output Total 350 Balance -250 Weight 200 lb 8 oz Intake: Oral 100 Output: Urine 350 Urethral (Hayes) 350 Other: Voiding Method Urinal - Patient Studies Lab Studies: Lab Studies 02/17/17 02/17/17 02/17/17 Range/Units 10:00 10:00 08:00 WBC 7.1 (4.5-11.0) 10^3/ul RBC 4.74 (3.5-6.1) 10^6/uL Hgb 14.9 (14.0-18.0) gm/dL Hct 43.2 (42.0-52.0) % MCV 91.1 (80.0-105.0) fL MCH 31.4 (25.0-35.0) pg MCHC 34.5 (31.0-37.0) g/dl RDW 12.4 (11.5-14.5) % Plt Count 145 (120.0-450.0) 10^3/uL MPV 10.2 (7.0-11.0) fl Gran % 74.4 H (50.0-68.0) % Lymph % (Auto) 16.1 L (22.0-35.0) % Erie % (Auto) 9.3 H (1.0-6.0) % Eos % (Auto) 0.1 L (1.5-5.0) % Baso % (Auto) 0.1 (0.0-3.0) % Gran # 5.24 (1.4-6.5) Lymph # 1.1 L (1.2-3.4) Erie # 0.7 H (0.1-0.6) Eos # 0.0 (0.0-0.7) Baso # 0.01 (0.0-2.0) K/mm3 PT (9.9-11.8) Seconds INR (0.93-1.08) APTT (23.7-30.8) Seconds Sodium 137 (132-148) mmol/L Potassium 3.7 (3.6-5.0) mmol/L Chloride 97 L (98-107) mmol/L Carbon Dioxide 30 (21-33) mmol/L Anion Gap 14 (10-20) BUN 12 (7-21) mg/dL Creatinine 0.7 (0.5-1.4) mg/dL Est GFR ( Amer) > 60 Est GFR (Non-Af Amer) > 60 Random Glucose 112 H (70-110) mg/dL Calcium 9.4 (8.4-10.5) mg/dL Total Bilirubin 1.4 H (0.2-1.3) mg/dL AST 29 (15-59) U/L ALT 51 (7-56) U/L Alkaline Phosphatase 67 (38-133) U/L Total Protein 7.9 (5.8-8.3) g/dL Albumin 4.3 (3.0-4.8) g/dL Globulin 3.7 gm/dL Albumin/Globulin Ratio 1.2 (1.1-1.8) Urine RBC (0-2) /hpf Urine WBC (0-6) /hpf Urine Opiates Screen (NEGATIVE) Urine Methadone Screen (NEGATIVE) Ur Barbiturates Screen (NEGATIVE) Ur Phencyclidine Scrn (NEGATIVE) Ur Amphetamines Screen (NEGATIVE) U Benzodiazepines Scrn (NEGATIVE) U Oth Cocaine Metabols (NEGATIVE) U Cannabinoids Screen (NEGATIVE) Blood Type Blood Type Confirm O POSITIVE Antibody Screen BBK History Checked 02/17/17 02/17/17 02/16/17 Range/Units 08:00 04:08 21:24 WBC (4.5-11.0) 10^3/ul RBC (3.5-6.1) 10^6/uL Hgb (14.0-18.0) gm/dL Hct (42.0-52.0) % MCV (80.0-105.0) fL MCH (25.0-35.0) pg MCHC (31.0-37.0) g/dl RDW (11.5-14.5) % Plt Count (120.0-450.0) 10^3/uL MPV (7.0-11.0) fl Gran % (50.0-68.0) % Lymph % (Auto) (22.0-35.0) % Erie % (Auto) (1.0-6.0) % Eos % (Auto) (1.5-5.0) % Baso % (Auto) (0.0-3.0) % Gran # (1.4-6.5) Lymph # (1.2-3.4) Erie # (0.1-0.6) Eos # (0.0-0.7) Baso # (0.0-2.0) K/mm3 PT 11.4 (9.9-11.8) Seconds INR 1.06 (0.93-1.08) APTT 27.7 (23.7-30.8) Seconds Sodium (132-148) mmol/L Potassium (3.6-5.0) mmol/L Chloride (98-107) mmol/L Carbon Dioxide (21-33) mmol/L Anion Gap (10-20) BUN (7-21) mg/dL Creatinine (0.5-1.4) mg/dL Est GFR ( Amer) Est GFR (Non-Af Amer) Random Glucose (70-110) mg/dL Calcium (8.4-10.5) mg/dL Total Bilirubin (0.2-1.3) mg/dL AST (15-59) U/L ALT (7-56) U/L Alkaline Phosphatase (38-133) U/L Total Protein (5.8-8.3) g/dL Albumin (3.0-4.8) g/dL Globulin gm/dL Albumin/Globulin Ratio (1.1-1.8) Urine RBC (0-2) /hpf Urine WBC (0-6) /hpf Urine Opiates Screen Negative (NEGATIVE) Urine Methadone Screen Negative (NEGATIVE) Ur Barbiturates Screen Negative (NEGATIVE) Ur Phencyclidine Scrn Negative (NEGATIVE) Ur Amphetamines Screen Negative (NEGATIVE) U Benzodiazepines Scrn Negative (NEGATIVE) U Oth Cocaine Metabols Negative (NEGATIVE) U Cannabinoids Screen Negative (NEGATIVE) Blood Type O POSITIVE Blood Type Confirm Antibody Screen Negative BBK History Checked No verified bt 02/16/17 Range/Units 15:15 WBC (4.5-11.0) 10^3/ul RBC (3.5-6.1) 10^6/uL Hgb (14.0-18.0) gm/dL Hct (42.0-52.0) % MCV (80.0-105.0) fL MCH (25.0-35.0) pg MCHC (31.0-37.0) g/dl RDW (11.5-14.5) % Plt Count (120.0-450.0) 10^3/uL MPV (7.0-11.0) fl Gran % (50.0-68.0) % Lymph % (Auto) (22.0-35.0) % Erie % (Auto) (1.0-6.0) % Eos % (Auto) (1.5-5.0) % Baso % (Auto) (0.0-3.0) % Gran # (1.4-6.5) Lymph # (1.2-3.4) Erie # (0.1-0.6) Eos # (0.0-0.7) Baso # (0.0-2.0) K/mm3 PT (9.9-11.8) Seconds INR (0.93-1.08) APTT (23.7-30.8) Seconds Sodium (132-148) mmol/L Potassium (3.6-5.0) mmol/L Chloride (98-107) mmol/L Carbon Dioxide (21-33) mmol/L Anion Gap (10-20) BUN (7-21) mg/dL Creatinine (0.5-1.4) mg/dL Est GFR ( Amer) Est GFR (Non-Af Amer) Random Glucose (70-110) mg/dL Calcium (8.4-10.5) mg/dL Total Bilirubin (0.2-1.3) mg/dL AST (15-59) U/L ALT (7-56) U/L Alkaline Phosphatase (38-133) U/L Total Protein (5.8-8.3) g/dL Albumin (3.0-4.8) g/dL Globulin gm/dL Albumin/Globulin Ratio (1.1-1.8) Urine RBC Negative (0-2) /hpf Urine WBC Negative (0-6) /hpf Urine Opiates Screen (NEGATIVE) Urine Methadone Screen (NEGATIVE) Ur Barbiturates Screen (NEGATIVE) Ur Phencyclidine Scrn (NEGATIVE) Ur Amphetamines Screen (NEGATIVE) U Benzodiazepines Scrn (NEGATIVE) U Oth Cocaine Metabols (NEGATIVE) U Cannabinoids Screen (NEGATIVE) Blood Type Blood Type Confirm Antibody Screen BBK History Checked Laboratory Results - last 24 hr 02/16/17 02/16/17 02/17/17 15:15 21:24 04:08 WBC RBC Hgb Hct MCV MCH MCHC RDW Plt Count MPV Gran % Lymph % (Auto) Erie % (Auto) Eos % (Auto) Baso % (Auto) Gran # Lymph # Erie # Eos # Baso # PT 11.4 INR 1.06 APTT 27.7 Sodium Potassium Chloride Carbon Dioxide Anion Gap BUN Creatinine Est GFR ( Amer) Est GFR (Non-Af Amer) Random Glucose Calcium Total Bilirubin AST ALT Alkaline Phosphatase Total Protein Albumin Globulin Albumin/Globulin Ratio Urine RBC Negative Urine WBC Negative Urine Opiates Screen Negative Urine Methadone Screen Negative Ur Barbiturates Screen Negative Ur Phencyclidine Scrn Negative Ur Amphetamines Screen Negative U Benzodiazepines Scrn Negative U Oth Cocaine Metabols Negative U Cannabinoids Screen Negative Blood Type Blood Type Confirm Antibody Screen BBK History Checked 02/17/17 02/17/17 02/17/17 08:00 08:00 10:00 WBC 7.1 RBC 4.74 Hgb 14.9 Hct 43.2 MCV 91.1 MCH 31.4 MCHC 34.5 RDW 12.4 Plt Count 145 MPV 10.2 Gran % 74.4 H Lymph % (Auto) 16.1 L Erie % (Auto) 9.3 H Eos % (Auto) 0.1 L Baso % (Auto) 0.1 Gran # 5.24 Lymph # 1.1 L Erie # 0.7 H Eos # 0.0 Baso # 0.01 PT INR APTT Sodium Potassium Chloride Carbon Dioxide Anion Gap BUN Creatinine Est GFR ( Amer) Est GFR (Non-Af Amer) Random Glucose Calcium Total Bilirubin AST ALT Alkaline Phosphatase Total Protein Albumin Globulin Albumin/Globulin Ratio Urine RBC Urine WBC Urine Opiates Screen Urine Methadone Screen Ur Barbiturates Screen Ur Phencyclidine Scrn Ur Amphetamines Screen U Benzodiazepines Scrn U Oth Cocaine Metabols U Cannabinoids Screen Blood Type O POSITIVE Blood Type Confirm O POSITIVE Antibody Screen Negative BBK History Checked No verified bt 02/17/17 10:00 WBC RBC Hgb Hct MCV MCH MCHC RDW Plt Count MPV Gran % Lymph % (Auto) Erie % (Auto) Eos % (Auto) Baso % (Auto) Gran # Lymph # Erie # Eos # Baso # PT INR APTT Sodium 137 Potassium 3.7 Chloride 97 L Carbon Dioxide 30 Anion Gap 14 BUN 12 Creatinine 0.7 Est GFR ( Amer) > 60 Est GFR (Non-Af Amer) > 60 Random Glucose 112 H Calcium 9.4 Total Bilirubin 1.4 H AST 29 ALT 51 Alkaline Phosphatase 67 Total Protein 7.9 Albumin 4.3 Globulin 3.7 Albumin/Globulin Ratio 1.2 Urine RBC Urine WBC Urine Opiates Screen Urine Methadone Screen Ur Barbiturates Screen Ur Phencyclidine Scrn Ur Amphetamines Screen U Benzodiazepines Scrn U Oth Cocaine Metabols U Cannabinoids Screen Blood Type Blood Type Confirm Antibody Screen BBK History Checked Critical Care Progress Note - Nutrition Nutrition: Nutrition Category Date Time Status NPO Diet [DIET] Diets 02/17/17 Breakfast Ordered Addendum Addendum: 02/17/17 15:41 patient was seen, examined and discussed shoulder to shoulder with Dr. Moirn. his note reflects my exam, assessment and plan, except as below. Meds/Labs/ONE reviewed. 61 yo with paroxysmal afib on eliquis admitted to icu with ICH in the setting of iatrogenic coagulopathy and new neuro deficit. ICH expanding. Urgent need to reverse coagulopathy. Spoke with [facility], who have aPCC, accepted patient. Patient is stable for trasnfer. Able to protect his airways, hemodynamically and respiratory christensen stable. ccm time 40 min
--- NOTE | 2017-03-23 21:35 | DS ---
The patient is a 61-year-old male with a history of coronary artery disease status post PTCA, who suf fered a syncopal episode on his way to work at [employer]. His medications included meto prolol, aspirin, Lipitor. He is known to have a burst of atrial fibrillation versus paroxysmal atria l fibrillation. The initial CAT scan of the head was negative; however, followup MRI of the brain sh owed a hemorrhage and diffuse abnormality in the right posterior frontal and parietal lobes consisten t with acute hemorrhage infarcts in a watershed distribution. The patient was followed by Dr. Mata as well as Dr. Lang, the mining professionals, in the critical care unit. Arrangements were made for the patient to be transferred to a [facility], who accepted the patient by Dr. Lockhart. Transpo rt was arranged, and patient was transferred to [facility] for further treatment. FINAL DIAGNOSES: 1. Intracerebral bleed. 2. Coronary artery disease, status post percutaneous transluminal coronary angioplasty. 3. Paroxysmal atrial fibrillation, on anticoagulation. 4. Syncope. Antonio Murguia MD cc: [id number] TT: 03/23/2017 21:34:39 tn
== END 2017-02-17 12:09 | disposition short-term general hospital (02) | DRG 84 ==
LOC: ED 13:23 → ERH 15:04 → 2RSO 16:41 → CCU 02-17 04:52
PROVIDERS: ADMIT Internal Medicine; ATTEND Internal Medicine
DX: S06.359A Traumatic hemorrhage of left cerebrum with loss of consciousness of unspecified duration, initial encounter (principal); S00.83XA Contusion of other part of head, initial encounter; R40.2412 Glasgow coma scale score 13-15, at arrival to emergency department; M21.372 Foot drop, left foot; I48.0 Paroxysmal atrial fibrillation; I10 Essential (primary) hypertension; I25.10 Atherosclerotic heart disease of native coronary artery without angina pectoris; Y93.01 Activity, walking, marching and hiking; W18.30XA Fall on same level, unspecified, initial encounter; Y92.480 Sidewalk as the place of occurrence of the external cause; Y99.0 Civilian activity done for income or pay; Z79.02 Long term (current) use of antithrombotics/antiplatelets; Z87.891 Personal history of nicotine dependence; Z95.5 Presence of coronary angioplasty implant and graft

== ENCOUNTER 2017-04-10 07:52 | Emergency (ER) | payer BC ==
[2017-04-10 07:54] VITALS: BMI 25.0
[2017-04-10 08:08] VITALS: TEMP 98.7
--- NOTE | 2017-04-10 08:15 | ED PDOC ---
Arrival/HPI - General Time Seen by Provider: 04/10/17 07:55 Historian: Patient - History of Present Illness Narrative History of Present Illness (Text): 04/10/17 08:11 A62 year old male, whose past medical history includes hypertension and atrial fibrillation, presents to the emergency department complaining of palpitations this morning. Patient reports he forgot to take his medication last night, amiodarone, metoprolol and digoxin. Patient is currently asymptomatic. Patient denies any fever, chills, nausea, vomiting, diarrhea, abdominal pain, chest pain , shortness of breath, cough or any other complaints. PMD: Dr. Murguia Map Drafter: Dr. Parkinson Time/Duration: Prior to Arrival Symptom Course: Resolved Quality: Other Context: Home Past Medical History - Provider Review Nursing Documentation Reviewed: Yes - Cardiac Hx Cardiac Disorders: Yes Hx Hypertension: Yes - Pulmonary Hx Respiratory Disorders: No - Neurological Hx Neurological Disorder: No - HEENT Hx HEENT Disorder: No - Renal Hx Renal Disorder: No - Endocrine/Metabolic Hx Endocrine Disorders: No - Hematological/Oncological Hx Blood Disorders: No - Integumentary Hx Dermatological Disorder: No - Musculoskeletal/Rheumatological Hx Falls: No - Gastrointestinal Hx Gastrointestinal Disorders: No - Genitourinary/Gynecological Hx Genitourinary Disorders: No - Psychiatric Hx Substance Use: No - Surgical History Hx Cardiac Catheterization: Yes Hx Coronary Stent: Yes (3 stents) Family/Social History - Physician Review Nursing Documentation Reviewed: Yes Family/Social History: No Known Family HX Smoking Status: Never Smoked Hx Alcohol Use: No Hx Substance Use: No Allergies/Home Meds Allergies/Adverse Reactions: Allergies No Known Allergies Allergy (Verified 04/10/17 08:25) Home Medications: Home Meds Medication Instructions Recorded Confirmed Amiodarone HCl [Pacerone] 200 mg PO DAILY 04/10/17 04/10/17 Aspirin [Aspirin EC] 81 mg PO DAILY 04/10/17 04/10/17 Atorvastatin [Lipitor] 20 mg PO DAILY 04/10/17 04/10/17 Digoxin [Digitek] 125 mcg PO DAILY 04/10/17 04/10/17 Docusate Sodium [Colace] 100 mg PO BID 04/10/17 04/10/17 Metoprolol Succinate [Toprol XL] 50 mg PO DAILY 04/10/17 04/10/17 Review of Systems - Physician Review All systems were reviewed & negative as marked: Yes - Review of Systems Constitutional: absent: Fevers, Night Sweats Respiratory: absent: SOB, Cough Cardiovascular: Palpitations (resolved). absent: Chest Pain Gastrointestinal: absent: Abdominal Pain, Diarrhea, Nausea, Vomiting Physical Exam Vital Signs Reviewed: Yes Vital Signs Temp Pulse Resp BP Pulse Ox 04/10/17 09:28 70 17 142/46 L 96 04/10/17 08:50 155 H 149/69 04/10/17 08:20 156 H 20 133/80 98 04/10/17 07:52 98.7 F 136 H 20 148/90 97 Temperature: Afebrile Blood Pressure: Normal Pulse: Tachycardic Respiratory Rate: Normal Appearance: Positive for: Well-Appearing, Non-Toxic, Comfortable Pain Distress: None Mental Status: Positive for: Alert and Oriented X 3 - Systems Exam Head: Present: Atraumatic, Normocephalic Pupils: Present: PERRL Extroacular Muscles: Present: EOMI Conjunctiva: Present: Normal Mouth: Present: Moist Mucous Membranes Neck: Present: Normal Range of Motion Respiratory/Chest: Present: Clear to Auscultation, Good Air Exchange. No: Respiratory Distress, Accessory Muscle Use Cardiovascular: Present: Normal S1, S2, Tachycardic. No: Murmurs Abdomen: Present: Normal Bowel Sounds. No: Tenderness, Distention, Peritoneal Signs Back: Present: Normal Inspection Upper Extremity: Present: Normal Inspection, NORMAL PULSES. No: Cyanosis, Edema Lower Extremity: Present: Normal Inspection, NORMAL PULSES. No: Edema, CALF TENDERNESS Neurological: Present: GCS=15, Speech Normal Skin: Present: Warm, Dry, Normal Color. No: Rashes Psychiatric: Present: Alert, Oriented x 3, Normal Insight, Normal Concentration Medical Decision Making ED Course and Treatment: 04/10/17 08:11 EKG shows atrial flutter at 120 BPM with variable AV block, nonspecific ST/T changes. Interpreted by me. 04/10/17 08:23 Repeat EKG shows NSR at 87 BPM with normal axis, normal intervals, no acute ischemia. Interpreted by me. Report Date : 04/10/2017 09:20:58 Procedure: Chest xray Dictator : Antonio Davis MD IMPRESSION: No active disease. 04/10/17 08:57 I disc w cards Dr Hanson who agrees w plan for follow up w Dr Reza in his office, pt to call for appt today. The pt rested comfortably in emergency department in NSR for over an hour after receiving cardizem 20mg. - Lab Interpretations Lab Results: 04/10/17 08:05 04/10/17 08:05 Lab Results 04/10/17 08:05: Digoxin < 0.4 L 04/10/17 08:05: Sodium 138, Potassium 3.5 L, Chloride 105, Carbon Dioxide 24, Anion Gap 13, BUN 17, Creatinine 0.9, Est GFR ( Amer) > 60, Est GFR (Non- Af Amer) > 60, Random Glucose 120 H, Calcium 9.1, Total Bilirubin 0.5, AST 25, ALT 35, Alkaline Phosphatase 96, Troponin I < 0.01, Total Protein 7.6, Albumin 4.4, Globulin 3.1, Albumin/Globulin Ratio 1.4 04/10/17 08:05: WBC 4.3 L D, RBC 4.82, Hgb 15.3, Hct 44.1, MCV 91.5, MCH 31.7, MCHC 34.7, RDW 13.0, Plt Count 123, MPV 10.7, Gran % 64.0, Lymph % (Auto) 26.6, [place] % (Auto) 7.7 H, Eos % (Auto) 1.2 L, Baso % (Auto) 0.5, Gran # 2.74, Lymph # 1.1 L, [place] # 0.3, Eos # 0.1, Baso # 0.02 - RAD Interpretation Radiology Orders: 04/10/17 08:11 CHEST PORTABLE [RAD] Stat - Medication Orders Current Medication Orders: Discontinued Medications Diltiazem HCl (Cardizem) 10 mg IVP STAT STA Stop: 04/10/17 08:12 Last Admin: 04/10/17 08:20 Dose: 10 mg Diltiazem HCl (Cardizem) 10 mg IVP STAT STA Stop: 04/10/17 08:51 Last Admin: 04/10/17 08:50 Dose: 10 mg - Scribe Statement The provider has reviewed the documentation as recorded by the Octavio Jeffers Provider Scribe Attestation: All medical record entries made by the Scribe were at my direction and personally dictated by me. I have reviewed the chart and agree that the record accurately reflects my personal performance of the history, physical exam, medical decision making, and the department course for this patient. I have also personally directed, reviewed, and agree with the discharge instructions and disposition. Disposition/Present on Arrival - Present on Arrival Any Indicators Present on Arrival: No History of DVT/PE: No History of Uncontrolled Diabetes: No Urinary Catheter: No History Surgical Site Infection Following: None - Disposition Have Diagnosis and Disposition been Completed?: Yes Diagnosis: Atrial flutter Disposition: HOME/ ROUTINE Disposition Time: 09:57 Condition: IMPROVED Additional Instructions: Please call Dr Reza's office today to make an appointment, today if possible or otherwise next week. Return to the ER for any worsening symptoms, palpitations, chest pain, difficulty breathing, dizziness, or for any other concerns. Referrals: Deandre Reza MD [Staff Provider] - Follow up with primary
[2017-04-10 08:22] LABS: ADD MANUAL DIFF? NO
[2017-04-10 08:26] LABS: BASO # 0.02 K/mm3 (0.0-2.0); BASO % 0.5 % (0.0-3.0); EOS # 0.1 (0.0-0.7); EOS % 1.2 % (1.5-5.0); GRAN # 2.74 (1.4-6.5); HEMATOCRIT 44.1 % (42.0-52.0); LYMPH # 1.1 (1.2-3.4); LYMPH % 26.6 % (22.0-35.0); MEAN CELL VOLUME 91.5 fL (80.0-105.0); MEAN CORPUSCULAR HEMOGLOBIN 31.7 pg (25.0-35.0); MEAN CORPUSCULAR HGB CONC 34.7 g/dl (31.0-37.0); MEAN PLATELET VOLUME 10.7 fl (7.0-11.0); MONO # 0.3 (0.1-0.6); MONO % 7.7 % (1.0-6.0); PLATELET COUNT 123 10^3/uL (120.0-450.0); WHITE BLOOD COUNT 4.3 10^3/ul (4.5-11.0)
[2017-04-10 08:35] LABS: ALB/GLOB RATIO 1.4 (1.1-1.8); ALKALINE PHOSPHATASE 96 U/L (38-133); ALT/SGPT 35 U/L (7-56); AST/SGOT 25 U/L (15-59); BILIRUBIN,TOTAL 0.5 mg/dL (0.2-1.3); BLOOD UREA NITROGEN 17 mg/dL (7-21); CALCIUM 9.1 mg/dL (8.4-10.5); CARBON DIOXIDE 24 mmol/L (21-33); CHLORIDE 105 mmol/L (98-107); GFR AFRICAN-AMERICAN > 60; GLUCOSE,RANDOM 120 mg/dL (70-110); POTASSIUM 3.5 mmol/L (3.6-5.0); SODIUM 138 mmol/L (132-148); TOTAL PROTEIN 7.6 g/dL (5.8-8.3)
[2017-04-10 08:47] LABS: TROPONIN I < 0.01 ng/mL
--- NOTE | 2017-04-10 09:22 | RAD ---
HISTORY: dizzy COMPARISON: 02/16/2017 FINDINGS: LUNGS: No active pulmonary disease. PLEURA: No significant pleural effusion identified, no pneumothorax apparent. CARDIOVASCULAR: Normal. OSSEOUS STRUCTURES: No significant abnormalities. VISUALIZED UPPER ABDOMEN: Normal. OTHER FINDINGS: None. IMPRESSION: No active disease.
[2017-04-10 09:28] VITALS: BP 142/46; PULSE 70; RESP 17; O2SAT 96
--- NOTE | 2017-04-10 09:55 | CARD ---
APPROVED REPORT EKG Measurement Heart [id number] <Conclusion> Normal sinus rhythm Normal ECG
--- NOTE | 2017-04-10 10:20 | CARD ---
APPROVED REPORT EKG Measurement Heart [id number] <Conclusion> Atrial flutter with variable AV block Nonspecific ST abnormality Abnormal ECG
== END 2017-04-10 10:07 | disposition home or self-care (01) ==
LOC: ED 07:52
DX: I48.92 Unspecified atrial flutter (principal); I10 Essential (primary) hypertension; Z95.5 Presence of coronary angioplasty implant and graft

== ENCOUNTER 2018-06-11 23:01 | Inpatient (IN) | payer BC ==
[2018-06-11 23:02] VITALS: BMI 25.0
--- NOTE | 2018-06-11 23:14 | ED PDOC ---
Arrival/HPI - General Chief Complaint: Palpitations Time Seen by Provider: 06/11/18 23:12 - History of Present Illness Narrative History of Present Illness (Text): 06/11/18 23:12 Patient is a 63 year old male transferred from [facility] ER presenting to the emergency department with palpitations and atrial fibrillation fib with RVR that started around dinner time. Patient notes he was given anti-arrhythmic medication sand is still on drip for atrial fibrillation after stabilization of his HR. Patient was transferred here for admission for his primary care doctor and automobile locator. Patient notes his palpitations have improved and denies any other complaints at this time. Per Dr. Domingo MD and patient- pt is not to be on anitcoagulate due to previous intracranial hemorrhage. 06/12/18 00:57 Symptom Onset: Gradual Symptom Course: Improving Activities at Onset: Light Context: Other ([place] [facility] [place] Past Medical History - Cardiac Hx Cardiac Disorders: Yes Hx Hypertension: Yes - Pulmonary Hx Respiratory Disorders: No - Neurological Hx Neurological Disorder: No - HEENT Hx HEENT Disorder: No - Renal Hx Renal Disorder: No - Endocrine/Metabolic Hx Endocrine Disorders: No - Hematological/Oncological Hx Blood Disorders: No - Integumentary Hx Dermatological Disorder: No - Musculoskeletal/Rheumatological Hx Falls: No - Gastrointestinal Hx Gastrointestinal Disorders: No - Genitourinary/Gynecological Hx Genitourinary Disorders: No - Psychiatric Hx Substance Use: No - Surgical History Hx Cardiac Catheterization: Yes Hx Coronary Stent: Yes (3 stents) - Anesthesia Hx Anesthesia: Yes Hx Anesthesia Reactions: No Hx Malignant Hyperthermia: No Family/Social History - Physician Review Nursing Documentation Reviewed: Yes Family/Social History: Unknown Family HX Smoking Status: Never Smoked Hx Alcohol Use: No Hx Substance Use: No Allergies/Home Meds Allergies/Adverse Reactions: Allergies bee pollen Adverse Reaction (Verified 06/11/18 23:30) SWELLING Home Medications: Home Meds Medication Instructions Recorded Confirmed Aspirin [Aspirin EC] 81 mg PO DAILY 04/10/17 06/11/18 Atorvastatin [Lipitor] 20 mg PO DAILY 04/10/17 06/11/18 Docusate Sodium [Colace] 100 mg PO BID 04/10/17 06/11/18 Metoprolol Succinate XL [Toprol XL] 50 mg PO DAILY 04/10/17 06/11/18 Sennosides [Senna] 8.6 mg PO HS 06/11/18 06/11/18 Review of Systems - Physician Review All systems were reviewed & negative as marked: Yes - Review of Systems Constitutional: absent: Fevers, Night Sweats Respiratory: absent: SOB Cardiovascular: absent: Chest Pain Gastrointestinal: absent: Diarrhea, Nausea, Vomiting Genitourinary Male: absent: Urinary Output Changes Musculoskeletal: absent: Back Pain, Neck Pain Neurological: absent: Headache, Dizziness Physical Exam Vital Signs Reviewed: Yes Vital Signs Temp Pulse Resp BP Pulse Ox 06/11/18 23:21 98.4 F 75 13 130/73 98 Temperature: Afebrile Blood Pressure: Normal Pulse: Regular Respiratory Rate: Normal Appearance: Positive for: Well-Appearing, Non-Toxic, Comfortable Pain Distress: None Mental Status: Positive for: Alert and Oriented X 3 - Systems Exam Head: Present: Atraumatic, Normocephalic Pupils: Present: PERRL Extroacular Muscles: Present: EOMI Conjunctiva: Present: Normal Mouth: Present: Moist Mucous Membranes Neck: Present: Normal Range of Motion Respiratory/Chest: Present: Clear to Auscultation, Good Air Exchange. No: Respiratory Distress, Accessory Muscle Use Cardiovascular: Present: Regular Rate and Rhythm, Normal S1, S2. No: Murmurs Abdomen: No: Tenderness, Distention, Peritoneal Signs Back: Present: Normal Inspection Upper Extremity: Present: Normal Inspection. No: Cyanosis, Edema Lower Extremity: Present: Normal Inspection. No: Edema Neurological: Present: GCS=15, CN II-XII Intact, Speech Normal Skin: Present: Warm, Dry, Normal Color. No: Rashes Psychiatric: Present: Alert, Oriented x 3, Normal Insight, Normal Concentration Medical Decision Making ED Course and Treatment: 06/11/18 23:14 Impression: 63 year old man presenting to the emergency department transferred from [facility] complaining of chest pain. Pt was in Afib in RVR, now controlled. Negative trop at [facility] ER. Per previous documentation- no AC 2/ 2 previous ICH. Plan: -- Reassess and disposition Prior Visits: Notes and results from previous visits were reviewed. Progress Notes: 06/11/18 23:14 EKG: Ordered, reviewed and independently interpreted the EKG. Rate:71 BPM Rhythm: NSR Interpretation: No ST segment elevations or depressions. 06/11/18 23:[address] Parkinson who recommended no anticoagulations at this time and he will follow up witht eh patient in the morning. 06/11/18 23:[address] Maldonado and has agreed to admit patient to his service to telemetry. 06/12/18 00:56 Xray from previous institution read- unremarkable. labs reviewed, unremarkable will admit - Lab Interpretations Lab Results: 06/11/18 23:20 06/11/18 23:20 Lab Results 06/11/18 23:20: Sodium 142, Potassium 3.8, Chloride 102, Carbon Dioxide 27, Anion Gap 16, BUN 18, Creatinine 0.8, Est GFR ( Amer) > 60, Est GFR (Non- Af Amer) > 60, Random Glucose 138 H, Calcium 9.5, Magnesium 2.2, Total Bilirubin 0.3, AST 28, ALT 29, Alkaline Phosphatase 72, Troponin I < 0.01, NT- Pro-B Natriuret Pep 80.6, Total Protein 7.3, Albumin 4.4, Globulin 2.9, Albumin/ Globulin Ratio 1.5 06/11/18 23:20: WBC 5.8 D, RBC 4.66, Hgb 14.3, Hct 41.5 L, MCV 89.1, MCH 30.7, MCHC 34.5, RDW 12.6, Plt Count 139, MPV 11.1 H, Gran % 63.9, Lymph % (Auto) 27.1 , [place] % (Auto) 7.5 H, Eos % (Auto) 1.2 L, Baso % (Auto) 0.3, Gran # 3.72, Lymph # (Auto) 1.6, [place] # (Auto) 0.4, Eos # (Auto) 0.1, Baso # (Auto) 0.02 - RAD Interpretation Radiology Orders: 06/11/18 23:54 CHEST PORTABLE [RAD] Stat - Medication Orders Current Medication Orders: diltiaZEM IVPB 100mg in NS (Cardizem 100mg In Ns) 100 mls @ 5 mls/hr IV .Q20H PRN; Protocol; 5 MG/HR PRN Reason: TITRATE PER MD ORDER Last Admin: 06/12/18 00:34 Dose: 5 mls/hr eMAR Start Stop Document 06/12/18 00:34 AD (Rec: 06/12/18 00:37 AD [id number]) Intravenous Solution Start Date 06/12/18 Start Time 00:37 - Scribe Statement The provider has reviewed the documentation as recorded by the Octavio Stout All medical record entries made by the Scribe were at my direction and personally dictated by me. I have reviewed the chart and agree that the record accurately reflects my personal performance of the history, physical exam, medical decision making, and the department course for this patient. I have also personally directed, reviewed, and agree with the discharge instructions and disposition. Disposition/Present on Arrival - Present on Arrival Any Indicators Present on Arrival: No History of DVT/PE: No History of Uncontrolled Diabetes: No Urinary Catheter: No History Surgical Site Infection Following: None - Disposition Have Diagnosis and Disposition been Completed?: Yes Diagnosis: Atrial fibrillation with RVR Disposition: HOSPITALIZED Disposition Time: 11:52 Condition: GOOD Forms: [employer] [facility] (Greenlandic)
[2018-06-11] MEDS ORDERED: diltiaZEM IVPB 100mg in NS 100 ML IV PRN (23:52)
[2018-06-12 00:32] LABS: ALB/GLOB RATIO 1.5 (1.1-1.8); ALBUMIN 4.4 g/dL (3.0-4.8); ALT/SGPT 29 U/L (7-56); AST/SGOT 28 U/L (17-59); BLOOD UREA NITROGEN 18 mg/dL (7-21); CALCIUM 9.5 mg/dL (8.4-10.5); GFR NON-AFRICAN AMERICAN > 60
[2018-06-12 00:43] LABS: B-TYPE NATRIURETIC PEPTIDE 80.6 pg/mL (0-450); TROPONIN I < 0.01 ng/mL
[2018-06-12 00:48] LABS: BASO # 0.02 K/mm3 (0.0-2.0); BASO % 0.3 % (0.0-3.0); EOS # 0.1 (0.0-0.7); EOS % 1.2 % (1.5-5.0); GRAN # 3.72 (1.4-6.5); GRAN % 63.9 % (50.0-68.0); HEMOGLOBIN 14.3 g/dL (14.0-18.0); LYMPH # 1.6 (1.2-3.4); LYMPH % 27.1 % (22.0-35.0); MEAN CELL VOLUME 89.1 fl (80.0-105.0); MEAN CORPUSCULAR HEMOGLOBIN 30.7 pg (25.0-35.0); MEAN CORPUSCULAR HGB CONC 34.5 g/dl (31.0-37.0); MEAN PLATELET VOLUME 11.1 fl (7.0-11.0); MONO # 0.4 (0.1-0.6); MONO % 7.5 % (1.0-6.0); RBC 4.66 10^6/uL (3.5-6.1); RED CELL DISTRIBUTION WIDTH 12.6 % (11.5-14.5); WHITE BLOOD COUNT 5.8 10^3/ul (4.5-11.0)
[2018-06-12 06:36] VITALS: O2SAT 97
--- NOTE | 2018-06-12 08:47 | RAD ---
HISTORY: previous palpitations- COMPARISON: Chest x-ray performed 04/10/17 TECHNIQUE: Chest, one view. FINDINGS: Examination limited by habitus. LUNGS: No focal consolidation. Please note that chest x-ray has limited sensitivity for the detection of pulmonary masses. PLEURA: No significant pleural effusion identified. No definite pneumothorax . CARDIOVASCULAR: The cardiomediastinal silhouette appears within normal limits of size. OSSEOUS STRUCTURES: Degenerative changes of the spine. VISUALIZED UPPER ABDOMEN: Unremarkable. OTHER FINDINGS: None. IMPRESSION: No focal consolidation, significant pleural effusion, or definite pneumothorax identified.
--- NOTE | 2018-06-12 09:29 | CON ---
Copied To: Deandre Reza MD Attending MD: Deandre Reza MD DATE: 06/12/2018 REQUESTING PHYSICIAN: Dr. Murguia REASON FOR CONSULTATION: Atrial fibrillation. HISTORY OF PRESENT ILLNESS: This is a 63-year-old man, well known to me with a history of coronary artery disease, paroxysmal atrial fibrillation and prior cerebrovascular accident, who presented to the emergency room with tachycardia and palpitations. He is noted to be in atrial fibrillation. He is started on IV Cardizem and subsequently converted to sinus rhythm. He has had multiple episodes of paroxysmal atrial fibrillation in the past. His last episode was over a year ago. He remains off anticoagulation as he has had a hemorrhagic stroke in the past as well. Yesterday in the evening, he noticed his heart rate to be increased and he went to the [facility] ER and was found to be in atrial fibrillation. He presented then to this emergency room for admission. He is currently comfortable. He denies any chest pain. PAST MEDICAL HISTORY: Notable for problems mentioned above. He does have coronary artery disease and underwent PCI of his left circumflex artery many years ago. Followup stress testing showed no evidence of ischemia. His ejection fraction is normal. He also has a history of hypertension in the past. CURRENT MEDICATIONS: Include aspirin 81 mg daily, Lipitor 20 mg daily, metoprolol 50 mg daily. ALLERGIES: NO DRUG ALLERGIES. SOCIAL HISTORY: He does not smoke or drink. He is , lives with his . FAMILY HISTORY: Both parents from age-related illness. REVIEW OF SYSTEMS: A 10-point review of systems is notable mainly for problems as mentioned above. PHYSICAL EXAMINATION: GENERAL: He is a middle-aged man, appears comfortable at rest. VITAL SIGNS: His blood pressure is 140/82 with a pulse of 60 and sinus, respirations are 16. He is afebrile. HEENT: Normocephalic, atraumatic. NECK: Supple. No JVD noted. CHEST: Clear to auscultation and percussion. HEART: PMI in normal position. No pathological murmurs or gallops noted. ABDOMEN: Soft and nontender with normoactive bowel sounds. EXTREMITIES: No clubbing, cyanosis, or edema. SKIN: Warm and dry. PSYCHIATRIC: Normal mood and affect. NEUROLOGIC: Alert and oriented x3. No gross motor or sensory deficits appreciable. DIAGNOSTIC DATA: Troponin is negative. Potassium 3.8. BUN and creatinine are 18 and 0.8. White count 5.8 and hemoglobin and hematocrit are 14.3 and 41.5 with a platelet count of 139,000. Current electrocardiogram reveals sinus bradycardia with no significant abnormalities. Chest x-ray reportedly was unremarkable. IMPRESSION: 1. Paroxysmal atrial fibrillation, now converted back to sinus rhythm. 2. Coronary artery disease status post remote percutaneous coronary intervention, stable at present. 3. History of hemorrhagic stroke in the past. 4. Rest of problems as noted. RECOMMENDATIONS: His current medications will be continued for now. As his [id number] score is low and he has had a prior hemorrhagic stroke, continue the aspirin, his antiplatelet therapy rather than full anticoagulation appears appropriate. Digoxin will be added for heart rate control in the event of recurrent episodes of atrial fibrillation for rate control. If he begins to have frequent breakthrough episodes, consideration can be given to antiarrhythmic therapy with flecainide or propafenone as a pill in a pocket approach or chronic therapy depending upon the circumstances. If he remains in sinus rhythm, discharge home later today with outpatient followup would be reasonable. Thank you for this consultation. We will be happy to see as needed. Deandre Reza MD
[2018-06-12] MEDS ORDERED: Metoprolol Succinate 50 mg XL Tab PO SCH (11:15)
[2018-06-12 12:08] VITALS: RESP 18
[2018-06-12 13:34] VITALS: PULSE 64
[2018-06-12] MEDS ORDERED: Digoxin 250 mcg (0.25 mg) Tab PO SCH (14:00)
[2018-06-12 18:15] VITALS: BP 125/80; PULSE 60; TEMP 99.3
--- NOTE | 2018-06-13 05:15 | CARD ---
APPROVED REPORT Date of service: 06/11/2018 EKG Measurement Heart [id number] <Conclusion> Normal sinus rhythm Normal ECG
== END 2018-06-12 18:52 | disposition home or self-care (01) | DRG 310 ==
LOC: ED 23:01 → ERH 06-12 00:52 → 2RNO 06-12 02:22
PROVIDERS: ADMIT Internal Medicine; ATTEND Internal Medicine
DX: I48.0 Paroxysmal atrial fibrillation (principal); I10 Essential (primary) hypertension; I25.10 Atherosclerotic heart disease of native coronary artery without angina pectoris; Z86.73 Personal history of transient ischemic attack (TIA), and cerebral infarction without residual deficits; Z95.5 Presence of coronary angioplasty implant and graft; Z79.82 Long term (current) use of aspirin